=== PATIENT | male | born 1935 | race Caucasian/White ===

== ENCOUNTER 2018-05-26 07:31 | Inpatient (IN) | payer MEDICARE ==
[~2018-05-26] VITALS: Ht 177.8 cm; Wt 70.4 kg
[2018-05-26 08:09] LABS: BASO % 0.6 % (0.0-1.0); EOS # 0.1 10^3/uL (0.0-0.50); EOS % 1.2 % (0.0-3.0); HEMATOCRIT 27.3 % (42.0-52.0); HEMOGLOBIN 8.4 g/dl (13.5-17.5); LYMPH # 0.8 10^3/uL (1.5-4.5); LYMPH % 11.5 % (24.0-44.0); MEAN CORPUSCULAR HEMOGLOBIN 25.8 pg (27.0-33.0); MEAN CORPUSCULAR HGB CONC 30.8 g/dl (32.0-36.5); MEAN CORPUSCULAR VOLUME 83.7 fl (80.0-96.0); MONO # 0.7 10^3/uL (0.0-0.8); MONO % 9.3 % (0.0-5.0); NEUTROPHILS # 5.6 10^3/uL (1.8-7.7); PLATELET COUNT, AUTOMATED 305 10^3/uL (150-450); RED BLOOD COUNT 3.26 10^6/uL (4.30-6.10); WHITE BLOOD COUNT 7.2 10^3/uL (4.0-10.0)
[2018-05-26 08:21] LABS: INR 0.97
[2018-05-26 08:38] LABS: BLOOD UREA NITROGEN 22 MG/DL (7-18); CALCIUM LEVEL 8.5 MG/DL (8.8-10.2); CARBON DIOXIDE LEVEL 24 MEQ/L (21-32); CHLORIDE LEVEL 110 MEQ/L (98-107); CPK CREATINE PHOSPHOKINASE 43 U/L (39-308); CREATININE FOR GFR 1.02 MG/DL (0.70-1.30); GLOMERULAR FILTRATION RATE > 60.0 (>35); GLUCOSE, FASTING 123 MG/DL (70-100); MB/CK RELATIVE INDEX 2.33 (< OR =4); SODIUM LEVEL 141 MEQ/L (136-145); TROPONIN I < 0.02 NG/ML (< 0.10)
[2018-05-26 09:12] LABS: ALBUMIN 3.4 GM/DL (3.2-5.2); ALT/SGPT 15 U/L (12-78); BILIRUBIN,DIRECT < 0.1 MG/DL (0.0-0.2); BILIRUBIN,TOTAL 0.4 MG/DL (0.2-1.0); FERRITIN 9 NG/ML (26-388); IRON (FE) 14 UG/DL (65-175); PERCENT SATURATION 3.5 % (19.7-50.0); TOTAL IRON BINDING CAPACITY 401 UG/DL (250-450); TOTAL PROTEIN 6.3 GM/DL (6.4-8.2)
[2018-05-26] MEDS ORDERED: ISOVUE-370 76% 100ML VIAL (Q9967) As Ordered ONE (09:56)
--- NOTE | 2018-05-26 10:33 | REP ---
CT of the abdomen pelvis wall with IV contrast, without bowel contrast: Comparison is a seven 12/01/2011. There is a pelvic mass to the right of midline measuring 10 cm craniocaudad by 8.4 cm AP by 5.8 cm transversely. The Doppler I suspect this mass is incasing of the ileal loop of small bowel. The small bowel distal to this mass including the terminal ileum are unremarkable. There is no bowel distension or obstruction. There is no ascites. There is no mesenteric or retroperitoneal adenopathy. The visualized lung hillman are unremarkable except for small areas of calcific pleural plaque and calcified granulomas in the right lower lobe. The hepatic parenchyma is homogeneous. The gallbladder is unremarkable. The pancreas and spleen are unremarkable. The adrenals are unremarkable. The right kidney is unremarkable. There is a large cortical calcification at the mid pole of the left kidney, unchanged, likely sequela of prior pyelonephritis or renal infarct. Abdominal aorta is unremarkable. Pelvis: There is a large mass as described. The bladder is unremarkable. There is no adenopathy or ascites. There are lucencies in many lumbar vertebral bodies, nonspecific, osteoporosis versus lytic lesions. There is degenerative disc disease at L4-5. Impression: There is a large pelvic mass which I suspect is in the wall of an ileal loop of small bowel. There is no bowel obstruction or distension. The terminal ileum is unremarkable. There is no adenopathy or ascites. Calcific pleural plaque and calcified granulomas in the lower lobe of the right lung. Lucencies in the lumbar vertebra, nonspecific, osteoporosis versus lytic lesions. L4-5 degenerative disc disease. Electronically Signed by Denny Tariq MD 05/26/2018 10:24 A
--- NOTE | 2018-05-26 10:36 | REP ---
LATERAL RIB SERIES: Five views including PA chest. HISTORY: Left-sided pain 6 weeks after a fall. Comparison radiographs are from September 09, 2005. FINDINGS: There is calcific pleural plaquing noted bilaterally. There is a 2 cm grouping of calcifications in the left upper quadrant of the abdomen unchanged from 2006. There is no evidence of pneumothorax or hydrothorax. No infiltrate is seen. Mediastinum is not widened. The aorta is calcific. Multiple views of the rib cage show periosteal reaction and around the left lateral 9th rib consistent with a healing 9th rib fracture. There is irregularity of the adjacent 11th rib posterolaterally. There is a healing fracture of the lateral 8th rib as well. There are old appearing fractures of the posterior right 9th, 10th, and 11th ribs. No acute rib fracture is seen on the right. There are degenerative changes in the thoracolumbar spine. Exam is otherwise unremarkable. IMPRESSION: Healing fractures of the left 8th and 9th, possibly left 11th rib. Old rib fractures on the right involving rib numbers 9, 10, and 11. No complication is seen. Electronically Signed by Bernardo Smith MD 05/26/2018 10:47 A
[2018-05-26] MEDS ORDERED: ASPI81TA85 PO (11:11)
[2018-05-26] MEDS ORDERED: ACETAMINOPHEN TAB 650MG DOSE (2X325MG) PO PRN (11:45)
[2018-05-26] MEDS: PANTOPRAZOLE 40MG INJ (PROTONIX) (C9113) IV SCH ×2 (13:17→20:17)
[2018-05-26] MEDS: NS 1,000 ML IV SCH ×2 (13:17→23:29)
[2018-05-26 15:30] VITALS: BP 141/74
--- NOTE | 2018-05-26 15:42 | HPEPDOC ---
[facility] Medical History & Physical Date of Admission May 26, 2018 History and Physical CHIEF COMPLAINT: rib pain (fall 6 weeks ago) HISTORY OF PRESENT ILLNESS: Austin Torres is an 82 YO M with no known past medical history (has not seen a physician in >20 years) who presents with left-sided rib pain after a fall at his home about 6 weeks ago. He states he was not dizzy/lightheaded, but he slipped on some ice going up the stairs leading to his front door. He was not evaluated by any physicians during this time frame and only reports to the ED today at the insistence of his sister. He states that he has gotten progressively short of breath over time, and is unable to walk more than about 2 blocks before having to stop to catch his breath. This has been progressively worsening over the past few months. He has not had any changes to his health recently. He denies any weight loss, night sweats, or unexplained fevers. He also denies any dysuria or bloody bowel movements. 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 Does not work. Never smoker. Occasional etOH. FAMILY HISTORY: History of lymphoma, breast cancer and stomach cancer in 1st degree relatives ALLERGIES: Please see below. REVIEW OF SYSTEMS: Negative, other than what is stated in HPI HOME MEDICATIONS: Please see below. PHYSICAL EXAMINATION: VITAL SIGNS: see below GENERAL APPEARANCE: Laying in bed, no acute distress, calm, cooperative HEENT: Moist mucous membranes. Extraocular movements intact, no thyromegaly CARDIOVASCULAR: Regular rate and rhythm without any murmurs, rubs or gallops LUNGS: Clear to auscultation bilaterally without any adventitious breath sounds ABDOMEN: Soft, tender to deep palpation in the left flank over his ribs, no masses or organomegaly MUSCULOSKELETAL: Moves all extremities well EXTREMITIES: No clubbing, cyanosis or edema NEUROLOGICAL: Cranial nerves II-12 intact without any focal deficits appreciated PSYCHIATRIC: Normal mood, somewhat flat affect LABORATORY DATA: See below. IMAGING: RIB XR: Healing fractures of the left 8th and 9th, possibly left 11th rib. Old rib fractures on the right involving rib numbers 9, 10, and 11. No complication is seen CT Abd/PEL: There is a large pelvic mass which I suspect is in the wall of an ileal loop of small bowel. There is no bowel obstruction or distension. The terminal ileum is unremarkable. There is no adenopathy or ascites. Calcific pleural plaque and calcified granulomas in the lower lobe of the right lung. Lucencies in the lumbar vertebra, nonspecific, osteoporosis versus lytic lesions. L4-5 degenerative disc disease. MICROBIOLOGY: Please see below. ASSESSMENT: This is an 82-year-old male with unknown past medical history who presents after a fall and broken ribs found to have possible GI bleed, anemia, and large pelvic mass in the wall of an ileal loop of small bowel. He will be admitted to the PCU for close observation. PLAN: 1. Iron deficiency Anemia secondary to possible GI bleed: Patient states he is unsure whether he has had darkened stools or blood per rectum. His stool occult was found to be positive in the ED. The patient has never had a colonoscopy. -Hemoglobin found to be 8.4, hematocrit 27.3. Baseline Hgb from labs previously done is around 13 -s/p 1U pRBCs in ED. Will recheck H/H in 6 hours -Iron very low at 14, ferritin found to be 9 -IV protonix 40mg BID 2. Abdominal mass: Patient was found to have large abdominal mass in wall of ileum. He has a very rich family history of cancers. The results of his CT scan were discussed with him and his sister. -General surgery consulted -Oncology consulted 3. Broken ribs: improving -Pain management with oxycodone DISPO: Pending surgery/oncology consult CODE STATUS: DNR/DNI Vital Signs Vital Signs Date Time Temp Pulse Resp B/P (MAP) Pulse Ox O2 Delivery O2 Flow Rate FiO2 05/26/18 12:40 98.3 74 17 111/68 (82) 97 05/26/18 07:48 Room Air Laboratory Data Labs 24H Laboratory Tests 2 05/26/18 07:58: Prothrombin Time 13.0, Prothromb Time International Ratio 0.97, Anion Gap 7L, Glomerular Filtration Rate > 60.0, Calcium Level 8.5L, Iron Level 14L, Total Iron Binding Capacity 401, Transferrin % Saturation 3.5L, Ferritin 9L, Aspartate Amino Transf (AST/SGOT) 14, Alanine Aminotransferase (ALT/SGPT) 15, Alkaline Phosphatase 59, Total Bilirubin 0.4, Direct Bilirubin < 0.1, Total Creatine Kinase 43, Creatine Kinase MB 1.0, Creatine Kinase MB Relative Index 2.33, Troponin I < 0.02, Total Protein 6.3L, Albumin 3.4, Albumin/Globulin Ratio 1.17 05/26/18 07:59: Immature Granulocyte % (Auto) 0.4, White Blood Count 7.2, Red Blood Count 3.26L, Hemoglobin 8.4L, Hematocrit 27.3L, Mean Corpuscular Volume 83.7, Mean Corpuscular Hemoglobin 25.8L, Mean Corpuscular Hemoglobin Concent 30.8L, Red Cell Distribution Width 13.2, Platelet Count 305, Neutrophils (%) (Auto) 77.0H, Lymphocytes (%) (Auto) 11.5L, Monocytes (%) (Auto) 9.3H, Eosinophils (%) (Auto) 1.2, Basophils (%) (Auto) 0.6, Neutrophils # (Auto) 5.6, Lymphocytes # (Auto) 0.8L, Monocytes # (Auto) 0.7, Eosinophils # (Auto) 0.1, Basophils # (Auto) 0.0, Nucleated Red Blood Cells % (auto) 0.0 CBC/BMP Laboratory Tests 05/26/18 07:58 05/26/18 07:59 Red Blood Count 3.26 L, Mean Corpuscular Volume 83.7, Mean Corpuscular Hemoglobin 25.8 L, Mean Corpuscular Hemoglobin Concent 30.8 L, Red Cell Distribution Width 13.2, Neutrophils (%) (Auto) 77.0 H, Lymphocytes (%) (Auto) 11.5 L, Monocytes (%) (Auto) 9.3 H, Eosinophils (%) (Auto) 1.2, Basophils (%) (Auto) 0.6, Neutrophils # (Auto) 5.6, Lymphocytes # (Auto) 0.8 L, Monocytes # (Auto) 0.7, Eosinophils # (Auto) 0.1, Basophils # (Auto) 0.0 Home Medications Scheduled Aspirin (Aspir 81) 81 Mg Tablet.dr, 81 MG PO DAILY Allergies Coded Allergies: No Known Drug Allergies (Verified Allergy, Unknown, 05/26/18) GME ATTESTATION GME ATTESTATION My faculty preceptor for this patient encounter was physically present during the encounter and was fully available. All aspects of the patient interview, examination, medical decision making process, and medical care plan development were reviewed and approved by the faculty preceptor. The faculty preceptor is aware and concurs with the plan as stated in the body of this note and will attest to such by his/her cosignature. ATTENDING NOTE ATTENDING ATTESTATION: I discussed and reviewed the findings and plan with resident. I have personally assessed patient at bedside and agreed with resident's assessment and plans. VIVIANE BOONE MD May 26, 2018 15:42 RADHA SAMS MD May 26, 2018 17:38
[2018-05-26] MEDS ORDERED: PERCOCET 5MG/325MG TAB PO PRN (15:45)
--- NOTE | 2018-05-26 18:34 | CR.PDOC ---
General Date of Consultation: May 26, 2018 Consultation REASON FOR CONSULTATION/CHIEF COMPLAINT: . Abdominal mass HISTORY OF PRESENT ILLNESS:82 year old male relates falling of steps and " misjudged " his disstance and was brought to the hopsital by his sister (80 year old ) Whdn seen in the ER he underwnet imaging studies revealing lytic lesions Evaluation of the Left sided rib Fx was done adn a CT of mike abdomne to r/o splenic bleed an abdominal mass with encasement of a small bowel portion was identified He denies weight loss, good apetite no blood in stool . , no abdominal pain . ALLERGIES: Please see below. HOME MEDICATIONS: none PAST MEDICAL HISTORY: 1. . 2. . PAST SURGICAL HISTORY: 1. no prior surgery 2. FAMILY HISTORY: Father: [ age 64 sudden ] Mother: age 70's Siblings: [13 siblings 8 still alive 1 sister late 30's may have had cancer unsure One ded of old age 1 brother of cancer lived in [place] unknown type Children: [5] Hereditary Diseases: [no ] Unexpected deaths due to medical reasons: [Father ] SOCIAL HISTORY: for 6 years Son bought the [employer] and nw works it he helps occasionally Non smoker no ETOH REVIEW OF SYSTEMS: CONSTITUTIONAL: [no sweats no weight loss ]. HEENT: no changes in vision . CARDIOVASCULAR: [ no chest pain palpitations no edema ]. RESPIRATORY: [no astham no SOB n o TB]. GENITOURINARY: [no dysuria no hematuria ]. MUSCULOSKELETAL: [no aches ]. GASTROINTESTINAL: [no bleeding noted no change in color or consistency of the bowels ]. SKIN: . NEUROLOGICAL: no numbness noted . PSYCHIATRIC: . ENDOCRINE: . HEMATOLOGIC/LYMPHATIC: . ALLERGIC/IMMUNOLOGIC: . PHYSICAL EXAMINATION: VITAL SIGNS: Please see below. GENERAL APPEARANCE: [ appearnace younger than stated age ]. HEENT: NC aT perrl EOMI sclera white RESPIRATORY: clear to A&P. CARDIOVASCULAR: s1 s2 appreciate no murmurs . ABDOMEN: [ no distendtion some fullness in the mid epigastric area no guarding or rebound noted ]. EXTREMITIES: [no cce ]. NEUROLOGICAL: intact . PSYCHIATRIC: . Laboratory Tests 05/26/18 07:58 05/26/18 07:59 Red Blood Count 3.26 L, Mean Corpuscular Volume 83.7, Mean Corpuscular Hemoglobin 25.8 L, Mean Corpuscular Hemoglobin Concent 30.8 L, Red Cell Distribution Width 13.2, Neutrophils (%) (Auto) 77.0 H, Lymphocytes (%) (Auto) 11.5 L, Monocytes (%) (Auto) 9.3 H, Eosinophils (%) (Auto) 1.2, Basophils (%) (Auto) 0.6, Neutrophils # (Auto) 5.6, Lymphocytes # (Auto) 0.8 L, Monocytes # (Auto) 0.7, Eosinophils # (Auto) 0.1, Basophils # (Auto) 0.0 LABORATORY DATA: Please see below. Vital Signs Date Time Temp Pulse Resp B/P (MAP) Pulse Ox O2 Delivery O2 Flow Rate FiO2 05/26/18 15:30 97.3 75 20 141/74 (96) 100 05/26/18 15:20 84 19 130/65 (86) 91 Room Air 05/26/18 12:40 98.3 74 17 111/68 (82) 97 05/26/18 11:58 98.2 72 18 118/62 (80) 93 05/26/18 11:55 97.0 75 18 138/71 (93) 91 05/26/18 09:41 78 115/66 (82) 85 110/69 (83) 100 105/64 (78) 05/26/18 08:36 18 111/69 (83) 98 05/26/18 08:31 79 05/26/18 08:16 83 05/26/18 08:01 80 05/26/18 07:55 05/26/18 07:48 100 Room Air 05/26/18 07:46 85 88 05/26/18 07:31 96.0 91 16 120/55 (76) Room Air Laboratory Tests 05/26/18 07:58: Prothrombin Time 13.0, Prothromb Time International Ratio 0.97, Sodium Level 141, Potassium Level 4.0, Chloride Level 110H, Carbon Dioxide Level 24, Anion Gap 7L, Blood Urea Nitrogen 22H, Creatinine 1.02, Glomerular Filtration Rate > 60.0, Fasting Glucose 123H, Calcium Level 8.5L, Iron Level 14L, Total Iron Binding Capacity 401, Transferrin % Saturation 3.5L, Ferritin 9L, Aspartate Amino Transf (AST/SGOT) 14, Alanine Aminotransferase (ALT/SGPT) 15, Alkaline Phosphatase 59, Total Bilirubin 0.4, Direct Bilirubin < 0.1, Total Creatine Kinase 43, Creatine Kinase MB 1.0, Creatine Kinase MB Relative Index 2.33, Troponin I < 0.02, Total Protein 6.3L, Albumin 3.4, Albumin/Globulin Ratio 1.17 05/26/18 07:59: White Blood Count 7.2, Red Blood Count 3.26L, Hemoglobin 8.4L, Hematocrit 27.3L, Mean Corpuscular Volume 83.7, Mean Corpuscular Hemoglobin 25.8L, Mean Corpuscular Hemoglobin Concent 30.8L, Red Cell Distribution Width 13.2, Platelet Count 305, Neutrophils (%) (Auto) 77.0H, Lymphocytes (%) (Auto) 11.5L, Monocytes (%) (Auto) 9.3H, Eosinophils (%) (Auto) 1.2, Basophils (%) (Auto) 0.6, Neutrophils # (Auto) 5.6, Lymphocytes # (Auto) 0.8L, Monocytes # (Auto) 0.7, Eosinophils # (Auto) 0.1, Basophils # (Auto) 0.0, Immature Granulocyte % (Auto) 0.4, Nucleated Red Blood Cells % (auto) 0.0 Current Medications Medications (Trade) Dose Ordered Sig/Rosy Route PRN Reason Start Time Stop Time Status Last Admin Dose Admin Pantoprazole Sodium (Protonix) 40 mg BID IV 05/26/18 09:00 05/26/18 13:17 40 MG Sodium Chloride 1,000 ml @ 100 mls/hr Q10H IV 05/26/18 12:00 05/26/18 13:17 100 MLS/HR ASSESSMENT/PLAN: 1. [Small bowel lesion Surgical consult pending tissue biopsy pending Thanks Pratibha Anglin ]. 2. . Vital Signs/I&O Vital Signs Date Time Temp Pulse Resp B/P (MAP) Pulse Ox O2 Delivery O2 Flow Rate FiO2 05/26/18 15:30 97.3 75 20 141/74 (96) 100 05/26/18 15:20 Room Air Laboratory Data Labs 24H Laboratory Tests 2 05/26/18 07:58: Prothrombin Time 13.0, Prothromb Time International Ratio 0.97, Anion Gap 7L, Glomerular Filtration Rate > 60.0, Calcium Level 8.5L, Iron Level 14L, Total Iron Binding Capacity 401, Transferrin % Saturation 3.5L, Ferritin 9L, Aspartate Amino Transf (AST/SGOT) 14, Alanine Aminotransferase (ALT/SGPT) 15, Alkaline Phosphatase 59, Total Bilirubin 0.4, Direct Bilirubin < 0.1, Total Creatine Kinase 43, Creatine Kinase MB 1.0, Creatine Kinase MB Relative Index 2.33, Troponin I < 0.02, Total Protein 6.3L, Albumin 3.4, Albumin/Globulin Ratio 1.17 05/26/18 07:59: Immature Granulocyte % (Auto) 0.4, White Blood Count 7.2, Red Blood Count 3.26L, Hemoglobin 8.4L, Hematocrit 27.3L, Mean Corpuscular Volume 83.7, Mean Corpuscular Hemoglobin 25.8L, Mean Corpuscular Hemoglobin Concent 30.8L, Red Cell Distribution Width 13.2, Platelet Count 305, Neutrophils (%) (Auto) 77.0H, Lymphocytes (%) (Auto) 11.5L, Monocytes (%) (Auto) 9.3H, Eosinophils (%) (Auto) 1.2, Basophils (%) (Auto) 0.6, Neutrophils # (Auto) 5.6, Lymphocytes # (Auto) 0.8L, Monocytes # (Auto) 0.7, Eosinophils # (Auto) 0.1, Basophils # (Auto) 0.0, Nucleated Red Blood Cells % (auto) 0.0 CBC/BMP Laboratory Tests 05/26/18 07:58 05/26/18 07:59 Red Blood Count 3.26 L, Mean Corpuscular Volume 83.7, Mean Corpuscular Hem oglobin 25.8 L, Mean Corpuscular Hemoglobin Concent 30.8 L, Red Cell Distribution Width 13.2, Neutrophils (%) (Auto) 77.0 H, Lymphocytes (%) (Auto) 11.5 L, Monocytes (%) (Auto) 9.3 H, Eosinophils (%) (Auto) 1.2, Basophils (%) (Auto) 0.6, Neutrophils # (Auto) 5.6, Lymphocytes # (Auto) 0.8 L, Monocytes # (Auto) 0.7, Eosinophils # (Auto) 0.1, Basophils # (Auto) 0.0 Allergies Coded Allergies: No Known Drug Allergies (Verified Allergy, Unknown, 05/26/18) Home Medications Scheduled Aspirin (Aspir 81) 81 Mg Tablet., 81 MG PO DAILY, (Reported) Pratibha Anglin MD May 26, 2018 18:34
[2018-05-26 18:53] LABS: HEMATOCRIT 25.2 % (42.0-52.0); MEAN CORPUSCULAR HEMOGLOBIN 26.1 pg (27.0-33.0); MEAN CORPUSCULAR HGB CONC 31.7 g/dl (32.0-36.5); MEAN CORPUSCULAR VOLUME 82.1 fl (80.0-96.0); PLATELET COUNT, AUTOMATED 242 10^3/uL (150-450); RED BLOOD COUNT 3.07 10^6/uL (4.30-6.10); WHITE BLOOD COUNT 6.1 10^3/uL (4.0-10.0)
[2018-05-26 19:56] VITALS: BP 116/69
--- NOTE | 2018-05-26 20:55 | CR ---
DATE OF CONSULTATION: 05/26/2018 REASON FOR CONSULTATION: Anemia with small bowel mass. 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 He had apparently suffered a fall 6-7 weeks ago landing on his left side with persistent pain thereafter. He also has found that he is unable to walk as far as he has previously been able with some shortness of breath on exertion. For these reasons, he came to the emergency department. He was evaluated and found to have several healing rib fractures on the left but also to have some significant anemia. His stool guaiac testing apparently showed heme-positive stool, and a CT scan of the abdomen and pelvis was performed which showed a mass which appeared to be involving and encasing a short segment of small bowel in the distal small bowel. The patient has not seen a doctor in many years and has been on no medications with no history of surgery. He is now admitted for management of his anemia and further evaluation of his abdominal mass. The hospitalist has admitted the patient and Dr. Anglin of oncology and myself have been consulted. MEDICATIONS: Patient is on no prescription medications at home. He apparently has been taking a daily baby aspirin, but also reports that me that he has been taking a daily laxative due to longstanding constipation. ALLERGIES: The patient has no reported drug allergies. SURGICAL HISTORY: Entirely negative. MEDICAL HISTORY: The patient denies any active medical problems. He has no history of cardiac issues. He denies any breathing problems until such time as he developed his recent exertional dyspnea. He denies any changes in his bowel habits, though he has some chronic constipation. He has not noticed any rectal bleeding. He denies any dysuria or hematuria. He has not had anything significant bone or joint issues. He denies any history of blood clots. He has had no history of seizure or stroke. SOCIAL HISTORY: He has a never smoker. He drinks alcohol occasionally. He lives alone but has a sister who lives in [place]. FAMILY HISTORY: Significant for a history of lymphoma and with at least one member of the family with breast cancer and stomach cancer. PHYSICAL EXAMINATION: The patient is a fairly thin, generally fairly fit appearing elderly man lying quietly on the hospital bed. He rouses readily to voice. He is alert and responds appropriately. Mucous membranes are moist. The sclerae are anicteric. Neck is supple without apparent mass. Heart exam shows a regular rate and rhythm. The lungs are clear to auscultation. Abdomen is flat, though somewhat full currently following a meal. He has active bowel sounds in all four quadrants. The abdomen is soft. There is no evident hernia and no scarring seen. There is no palpable mass. Extremities: Show no peripheral edema. He has palpable radial and dorsalis pedis pulses bilaterally. Laboratory studies show that on presentation at about 8 o'clock in the morning on May 26, he had a white count of 7, hemoglobin of 8, hematocrit 27 and a platelet count of 305,000. Differential count showed 77% neutrophils, 12% lymphocytes and 9% monocytes. Chemistry profile showed a sodium of 141, potassium 4.0, chloride 110, CO2 of 24, BUN of 22, creatinine 1, and a glucose of 123. His iron was 14 with a TIBC of 401 and a transferrin percent saturation of 3.5. His liver function tests were normal. Total protein is 6.3 with an albumin of 3.4. PT and INR were normal. IMAGING: Done in the emergency department included a chest x-ray that showed healing fractures of the left 8th and 9th and possibly the 11th rib. Old rib fractures were noted on the right involving the 9th, 10th, and 11th ribs. A CT scan of the abdomen and pelvis was done which revealed a mass in the right side of the pelvis measuring approximately 10 cm maximally and appearing to encase a loop of the distal ileum. There was no evidence of obstruction or distension of the bowel and there was no free fluid seen. The radiologist reported some lucencies in the lumbar vertical bodies, which he described as nonspecific and consistent with osteoporosis versus lytic lesions. IMPRESSION: Patient is a pleasant, previously healthy 82-year-old man who presented with several recent rib fractures and also now with anemia and exertional dyspnea with a mass identified in the distal small bowel. RECOMMENDATIONS: At this point, it seems most likely that the intestinal mass is the cause for his anemia, though this is certainly not certain. He could have other gastrointestinal tract lesions leading to the blood loss and anemia, but certainly the mass is obvious and could well be the source for his bleeding. Interestingly, this appears to encircle or encase a loop of small bowel, but there is not any sign of obstruction. There are a number of different types of tumor that this could represent, both malignant and possibly even benign. I would recommend at this point that the patient receive transfusions to an acceptable level for surgery. He has been healthy all of life and denies any cardiac or significant respiratory issues. I think it is likely that the most direct approach to an answer to both the source of his bleeding and the elimination of his tumor would be to resect this mass. I will continue to follow him and when his medical issues are all felt to be stable, then I will discuss with him surgery to resect this intestinal mass. ADINA
[2018-05-26 23:54] VITALS: BP 111/63
[2018-05-27 03:54] VITALS: BP 118/59
[2018-05-27 05:24] LABS: HEMATOCRIT 23.8 % (42.0-52.0); HEMOGLOBIN 7.4 g/dl (13.5-17.5); MEAN CORPUSCULAR HEMOGLOBIN 25.8 pg (27.0-33.0); MEAN CORPUSCULAR HGB CONC 31.1 g/dl (32.0-36.5); MEAN CORPUSCULAR VOLUME 82.9 fl (80.0-96.0); PLATELET COUNT, AUTOMATED 227 10^3/uL (150-450); RED BLOOD COUNT 2.87 10^6/uL (4.30-6.10); WHITE BLOOD COUNT 5.1 10^3/uL (4.0-10.0)
[2018-05-27 05:40] LABS: BLOOD UREA NITROGEN 20 MG/DL (7-18); CALCIUM LEVEL 7.7 MG/DL (8.8-10.2); CARBON DIOXIDE LEVEL 25 MEQ/L (21-32); CHLORIDE LEVEL 113 MEQ/L (98-107); GLOMERULAR FILTRATION RATE > 60.0 (>35); GLUCOSE, FASTING 82 MG/DL (70-100); POTASSIUM SERUM 3.9 MEQ/L (3.5-5.1); SODIUM LEVEL 142 MEQ/L (136-145)
[2018-05-27] MEDS: D5W/0.9% SODIUM CHLORIDE 1,000 ML IV SCH ×2 (06:50→21:57)
[2018-05-27 08:04] VITALS: BP 102/56
[2018-05-27] MEDS: PANTOPRAZOLE 40MG INJ (PROTONIX) (C9113) IV SCH ×2 (10:39→21:57)
[2018-05-27 12:09] VITALS: BP 119/74
[2018-05-27 12:21] LABS: HEMATOCRIT 27.1 % (42.0-52.0); HEMOGLOBIN 8.5 g/dl (13.5-17.5)
--- NOTE | 2018-05-27 12:36 | IPNPDOC ---
Date Seen The patient was seen on 05/27/18. Progress Note SUBJECTIVE: Patient is a 82 yo Male with no known PMH presented with complaints of L. sided rib pain found to have a large abdominal mass and anemia with + fecal occult stool. Interval history: Patient reported feeling fine and denies any noticable abdominal pain/discomfort, N/V. He states that the rib pain is there but otherwise has no complaints. OBJECTIVE PHYSICAL EXAMINATION: VITAL SIGNS: Please see below. General: No acute distress, Alert Eyes: Normal sclera, EOMI, RADHA HENT: Atraumatic, neck supple, moist mucous membranes Cardiovascular: Normal rate, normal rhythm. No murmurs appreciated. Pulmonary: Clear to auscultation b/l, no wheezing GI: Soft, nontender, nondistended Skin: Warm and dry Neuro: CN grossly intact. No focal deficits. Strengths equal b/l. Psych: oriented x 3 LABORATORY DATA, IMAGING STUDIES, MICROBIOLOGY: Please see below. DVT prophylaxis ordered?: YES ASSESSMENT AND PLAN: 1. Abdominal mass - large mass in wall of ileum in setting of strong family history of malignancy. - No previous known colonoscopy, patient normally does not follow doctors. - General surgery and oncology following. - Stabelizing medically and will need to discuss plan going forward as far as resection/biopsy when appropriate. 2. Iron deficiency anemia - Patient is receiving pRBC. No significant anemic symptoms reported. - Likely 2/2 GI bleed possibly from mass. FOBT+. - Monitor H/H. - Low iron and Ferritin. - c/w IV Protonix. 3.Broken ribs - Pain improving. - c/w Oxycodone as needed for pain. Dispo: likely home. Code status: DNR/DNI. DISPOSITION: Home when stable. VS, I&O, 24H, Fishbone Vital Signs/I&O Vital Signs Date Time Temp Pulse Resp B/P (MAP) Pulse Ox O2 Delivery O2 Flow Rate FiO2 05/27/18 12:09 97.8 62 18 119/74 (89) 100 05/26/18 15:20 Room Air I&O- Last 24 Hours up to 6 AM 05/27/18 06:00 Intake Total 1278 ml Output Total 750 ml Balance 528 ml Laboratory Data 24H LABS Laboratory Tests 2 05/26/18 18:34: Nucleated Red Blood Cells % (auto) 0.0, Lactate Dehydrogenase 167, Carcinoembryonic Antigen 2.4 05/26/18 19:53: Bedside Glucose (Misc Panel) 85 05/27/18 04:55: Nucleated Red Blood Cells % (auto) 0.0, Anion Gap 4L, Glomerular Filtration Rate > 60.0, Blood Urea Nitrogen 20H, Creatinine 0.80, Sodium Level 142, Potassium Level 3.9, Chloride Level 113H, Carbon Dioxide Level 25, Calcium Level 7.7L CBC/BMP Laboratory Tests 05/26/18 18:34 Red Blood Count 3.07 L, Mean Corpuscular Volume 82.1, Mean Corpuscular Hemoglobin 26.1 L, Mean Corpuscular Hemoglobin Concent 31.7 L, Red Cell Distrib ution Width 13.7 05/27/18 04:55 Red Blood Count 2.87 L, Mean Corpuscular Volume 82.9, Mean Corpuscular Hemoglobin 25.8 L, Mean Corpuscular Hemoglobin Concent 31.1 L, Red Cell Di stribution Width 13.6, Calcium Level 7.7 L 05/27/18 11:52 RADHA SAMS MD May 27, 2018 12:36
[2018-05-27 16:00] VITALS: BP 122/60
[2018-05-27 19:00] VITALS: BP 144/66
--- NOTE | 2018-05-27 21:13 | ECGEPIP ---
Stationary ECG Study [facility] - ED Test Date: 2018-05-26 Pat Name: BRIDGET WHITE Department: Room: - Gender: M Watermelon Inspector: : [id number] Requested By: Jim Morgan Order Number: [id number] Reading MD: Deepali Sanchez Measurements Intervals [place] Rate: 81 P: 95 VA: 174 QRS: -13 QRSD: 95 T: 15 QT: 389 QTc: 453 Interpretive Statements SINUS RHYTHM WITH FREQUENT VENTRICULAR PREMATURE COMPLEXES INCOMPLETE RIGHT BUNDLE BRANCH BLOCK ABNORMAL RHYTHM ECG NO PRIOR FOR COMPARISON Electronically Signed On 05-27-2018 21:13:13 EDT by Deepali Sanchez
[2018-05-27 22:00] VITALS: BP 149/68
[2018-05-28 02:00] VITALS: BP 112/58
[2018-05-28 06:00] VITALS: BP 111/55
[2018-05-28 06:13] LABS: HEMATOCRIT 27.1 % (42.0-52.0); HEMOGLOBIN 8.4 g/dl (13.5-17.5); MEAN CORPUSCULAR VOLUME 83.9 fl (80.0-96.0); PLATELET COUNT, AUTOMATED 243 10^3/uL (150-450); RED BLOOD COUNT 3.23 10^6/uL (4.30-6.10); WHITE BLOOD COUNT 5.2 10^3/uL (4.0-10.0)
[2018-05-28 06:40] LABS: BLOOD UREA NITROGEN 17 MG/DL (7-18); CALCIUM LEVEL 7.5 MG/DL (8.8-10.2); CARBON DIOXIDE LEVEL 24 MEQ/L (21-32); CHLORIDE LEVEL 114 MEQ/L (98-107); CREATININE FOR GFR 0.83 MG/DL (0.70-1.30); GLOMERULAR FILTRATION RATE > 60.0 (>35); GLUCOSE, FASTING 98 MG/DL (70-100); POTASSIUM SERUM 3.6 MEQ/L (3.5-5.1); SODIUM LEVEL 144 MEQ/L (136-145)
[2018-05-28] MEDS: PANTOPRAZOLE 40MG INJ (PROTONIX) (C9113) IV SCH ×2 (08:57→22:11)
[2018-05-28 10:00] VITALS: BP 117/59
[2018-05-28] MEDS: D5W/0.9% SODIUM CHLORIDE 1,000 ML IV SCH (11:06)
[2018-05-28 14:00] VITALS: BP 122/63
--- NOTE | 2018-05-28 14:48 | IPNPDOC ---
Date Seen The patient was seen on 05/28/18. Progress Note SUBJECTIVE: Patient is a 82 yo Male with no known PMH presented with complaints of L. sided rib pain found to have a large abdominal mass and anemia with + fecal occult stool. Interval history: Patient reported feeling fine, has no symptoms. Denies any N/V. Hb 8.4 this AM. OBJECTIVE PHYSICAL EXAMINATION: VITAL SIGNS: Please see below. General: No acute distress, Alert Eyes: Normal sclera, EOMI, RADHA HENT: Atraumatic, neck supple, moist mucous membranes Cardiovascular: Normal rate, normal rhythm. No murmurs appreciated. Pulmonary: Clear to auscultation b/l, no wheezing GI: Soft, nontender, nondistended Skin: Warm and dry Neuro: CN grossly intact. No focal deficits. Strengths equal b/l. Psych: oriented x 3 LABORATORY DATA, IMAGING STUDIES, MICROBIOLOGY: Please see below. DVT prophylaxis ordered?: YES ASSESSMENT AND PLAN: 1. Abdominal mass - large mass in wall of ileum in setting of strong family history of malignancy. - No previous known colonoscopy, patient normally does not follow doctors. - General surgery and oncology following. - Tentatively plan for OR tomorrow. - Transfuse if Hb drops prior to surgery. - Patient had no known coronary disease or pulmonary disease. - Class Risk I preoperative risk. 0 points. 2. Iron deficiency anemia - s/p 2 pRBC. No significant anemic symptoms reported. - Likely 2/2 GI bleed possibly from mass. FOBT+. - Monitor H/H. - Low iron and Ferritin. - c/w IV Protonix. 3.Broken ribs - Pain improving. - c/w Oxycodone as needed for pain. Dispo: likely home. Code status: DNR/DNI. DISPOSITION: Home when stable. VS, I&O, 24H, Fishbone Vital Signs/I&O Vital Signs Date Time Temp Pulse Resp B/P (MAP) Pulse Ox O2 Delivery O2 Flow Rate FiO2 05/28/18 06:00 97.0 65 18 111/55 (73) 98 05/26/18 15:20 Room Air I&O- Last 24 Hours up to 6 AM 05/28/18 06:00 Intake Total 640 ml Output Total 1000 ml Balance -360 ml Laboratory Data 24H LABS Laboratory Tests 2 05/28/18 05:38: Nucleated Red Blood Cells % (auto) 0.0, Anion Gap 6L, Glomerular Filtration Rate > 60.0, Blood Urea Nitrogen 17, Creatinine 0.83, Sodium Level 144, Potassium Level 3.6, Chloride Level 114H, Carbon Dioxide Level 24, Calcium Level 7.5L CBC/BMP Laboratory Tests 05/28/18 05:38 Red Blood Count 3.23 L, Mean Corpuscular Volume 83.9, Mean Corpuscular Hemoglobin 26.0 L, Mean Corpuscular Hemoglobin Concent 31.0 L, Red Cell Distribution Width 13.8, Calcium Level 7.5 L RADHA SAMS MD May 28, 2018 14:48
[2018-05-28 20:00] VITALS: BP 117/63
[2018-05-28 22:00] VITALS: BP 117/63
[2018-05-29] VITALS (8 sets, daily range): BP systolic 112–156; BP diastolic 63–71
[2018-05-29] MEDS: D5W/0.9% SODIUM CHLORIDE 1,000 ML IV SCH (01:24)
--- NOTE | 2018-05-29 03:00 | IPN ---
DATE: 05/27/2018 HISTORY: The patient was admitted on the with a history of a previous fall with several broken ribs and the finding of marked anemia. A CT scan of the abdomen and pelvis revealed a mass involving a loop of distal small bowel. He has had no symptoms from this. This is presumed to be the site of gastrointestinal tract bleeding. VITAL SIGNS: The patient has been afebrile over the past 24 hours. His pulse has been in the 60s and 70s. Blood pressure is stable and his oxygen saturation is normal on room air. Intake and output shows that on the he had 1100 in with 450 recorded out. PHYSICAL EXAMINATION: The patient is alert and oriented. He received one unit of packed red blood cells on the and is receiving another unit today. He is alert, oriented and comfortable. Heart exam shows a regular rhythm and the abdomen is soft and nontender. Laboratory studies show a white count of five with a hemoglobin of 7, hematocrit of 24 and platelet count of 227,000. Chemistry profile this morning showed a sodium of 142, potassium 3.9, chloride 113, CO2 of 25, BUN of 20, creatinine 0.8 and a glucose of 82. IMPRESSION: The patient's anemia has not improved after 1 unit of blood and will receive a second unit today. He otherwise remains asymptomatic with a known small bowel mass. PLAN: The patient was counseled that I would recommend removing the abnormal segment of his small bowel. I will attempt to find time in the OR schedule for the . He can continue with a diet for now and he probably will not require a bowel preparation for the surgery. I will let him know if I can give him a more definite time for the procedure. ADINA
--- NOTE | 2018-05-29 03:03 | IPN ---
DATE: 05/28/2018 HISTORY: The patient received his second unit of blood yesterday. His hematocrit this morning is 27%. He has not noticed any rectal bleeding. He denies any nausea or vomiting or abdominal pain. VITAL SIGNS: Show that he has remained afebrile with a pulse in the 60s and a normal blood pressure. Intake and output yesterday showed 840 in with 1300 out. His unit of blood yesterday is not recorded in the intake and output. PHYSICAL EXAMINATION: The patient is alert and oriented and comfortable. The abdomen shows active bowel sounds and the abdomen is soft and nontender. Laboratory studies this morning show white count of 5, hemoglobin of 8, hematocrit of 27% and platelet count is 243,000. Chemistry profile is really unchanged from yesterday with a normal BUN and creatinine and a glucose of 98. IMPRESSION: Anemia, presumed secondary to distal small bowel mass. PLAN: Patient is scheduled as an add-on for surgery for a small bowel resection on the . I have recommended that he remain on clear liquids today and then nothing by mouth after midnight. I do not know when his surgery will occur, but it is likely to be late in the afternoon. ADINA
[2018-05-29 06:51] LABS: HEMATOCRIT 31.2 % (42.0-52.0); HEMOGLOBIN 9.7 g/dl (13.5-17.5); MEAN CORPUSCULAR HEMOGLOBIN 26.5 pg (27.0-33.0); MEAN CORPUSCULAR HGB CONC 31.1 g/dl (32.0-36.5); MEAN CORPUSCULAR VOLUME 85.2 fl (80.0-96.0); PLATELET COUNT, AUTOMATED 283 10^3/uL (150-450); RED BLOOD COUNT 3.66 10^6/uL (4.30-6.10); WHITE BLOOD COUNT 6.3 10^3/uL (4.0-10.0)
[2018-05-29 07:16] LABS: BLOOD UREA NITROGEN 11 MG/DL (7-18); CALCIUM LEVEL 8.2 MG/DL (8.8-10.2); CARBON DIOXIDE LEVEL 21 MEQ/L (21-32); CHLORIDE LEVEL 114 MEQ/L (98-107); GLOMERULAR FILTRATION RATE > 60.0 (>35); GLUCOSE, FASTING 127 MG/DL (70-100); POTASSIUM SERUM 3.4 MEQ/L (3.5-5.1); SODIUM LEVEL 145 MEQ/L (136-145)
[2018-05-29] MEDS: PANTOPRAZOLE 40MG INJ (PROTONIX) (C9113) IV SCH (08:57)
[2018-05-29] MEDS ORDERED: POTASSIUM CHLORIDE INJ 20 MEQ in D5W/LR 1,000 ML IV SCH (09:00)
[2018-05-29] MEDS ORDERED: KCL 10MEQ/100ML SWI (KRUN) 10 MEQ in APPROPRIATE DILUENT 1 EA IV ONE (10:15)
[2018-05-29] MEDS ORDERED: BUPIVACAINE HCL 0.25% 30 ML VIAL As Ordered ONE (15:11)
[2018-05-29] MEDS ORDERED: ONDANSETRON 4MG/2ML VIAL (J2405) As Ordered ONE ×2 (15:51→19:28)
[2018-05-29] MEDS ORDERED: GLYCOPYRROLATE INJ 0.2 MG/ML 2 ML VIAL As Ordered ONE (15:51)
[2018-05-29] MEDS ORDERED: dexameTHASONE 4 MG/ML 1ML VIAL (J1100) As Ordered ONE (15:51)
[2018-05-29] MEDS ORDERED: ROCURONIUM BROMIDE 50 MG/5 ML VIAL As Ordered ONE (15:51)
[2018-05-29] MEDS ORDERED: LIDOCAINE 2% INJ 100 MG/5 ML SDV (FOR ANES.) As Ordered ONE (15:51)
[2018-05-29] MEDS ORDERED: fentaNYL 100 MCG/2 ML INJECTION (J3010) As Ordered ONE (15:51)
[2018-05-29] MEDS ORDERED: NEOSTIGMINE 10 MG/10 ML VIAL (J2710) As Ordered ONE (15:51)
[2018-05-29] MEDS ORDERED: PROPOFOL 200 MG/20 ML VIAL As Ordered ONE (15:51)
[2018-05-29] MEDS ORDERED: KETOROLAC 60 MG/2 ML VIAL (J1885) As Ordered ONE (15:51)
[2018-05-29] MEDS ORDERED: MIDAZOLAM INJ 2 MG/2 ML VIAL (J2250) As Ordered ONE (15:52)
[2018-05-29] MEDS ORDERED: cefoTEtan INJ 2GM VIAL (S0074 PER 500MG) As Ordered ONE (16:11)
[2018-05-29] MEDS ORDERED: cefoTEtan DISODIUM 2 GM in D5W MINI-BAG PLUS 50 ML IV ONE (16:15)
--- NOTE | 2018-05-29 16:52 | IPNPDOC ---
Date Seen The patient was seen on 05/29/18. Progress Note SUBJECTIVE: Patient is a 82 yo Male with no known PMH presented with complaints of L. sided rib pain found to have a large abdominal mass and anemia with + fecal occult stool. Interval history: Patient looks comfortable and offered no complaints including any N/V/D this morning. Scheduled for add-on surgery for small bowel resection today. OBJECTIVE PHYSICAL EXAMINATION: VITAL SIGNS: Please see below. General: No acute distress, Alert Eyes: Normal sclera, EOMI, RADHA HENT: Atraumatic, neck supple, moist mucous membranes Cardiovascular: Normal rate, normal rhythm. No murmurs appreciated. Pulmonary: Clear to auscultation b/l, no wheezing GI: Soft, nontender, nondistended Skin: Warm and dry Neuro: CN grossly intact. No focal deficits. Strengths equal b/l. Psych: oriented x 3 LABORATORY DATA, IMAGING STUDIES, MICROBIOLOGY: Please see below. DVT prophylaxis ordered?: YES ASSESSMENT AND PLAN: 1. Abdominal mass - large mass in wall of ileum in setting of strong family history of malignancy. - No previous known colonoscopy, patient normally does not follow doctors. - General surgery and oncology following. - Scheduled as add-on for OR for SB resection today. - Patient had no known coronary disease or pulmonary disease. - Class Risk I preoperative risk. 0 points. 2. Iron deficiency anemia - s/p 2 pRBC. No significant anemic symptoms reported. - Likely 2/2 GI bleed possibly from mass. FOBT+. - Monitor H/H. - Low iron and Ferritin. - c/w IV Protonix. 3.Broken ribs - Pain improving. - c/w Oxycodone as needed for pain. Dispo: likely home. Code status: DNR/DNI. DISPOSITION: Home when stable. VS, I&O, 24H, Fishbone Vital Signs/I&O Vital Signs Date Time Temp Pulse Resp B/P (MAP) Pulse Ox O2 Delivery O2 Flow Rate FiO2 05/29/18 14:00 98.2 60 18 138/63 (88) 80 05/26/18 15:20 Room Air I&O- Last 24 Hours up to 6 AM 05/29/18 05:59 Intake Total 690 ml Output Total 0 ml Balance 690 ml Laboratory Data 24H LABS Laboratory Tests 2 05/29/18 06:12: Nucleated Red Blood Cells % (auto) 0.0, Anion Gap 10, Glomerular Filtration Rate > 60.0, Blood Urea Nitrogen 11, Creatinine 0.90, Sodium Level 145, Potassium Level 3.4L, Chloride Level 114H, Carbon Dioxide Level 21, Calcium Level 8.2L CBC/BMP Laboratory Tests 05/29/18 06:12 Red Blood Count 3.66 L, Mean Corpuscular Volume 85.2, Mean Corpuscular Hemoglobin 26.5 L, Mean Corpuscular Hemoglobin Concent 31.1 L, Red Cell Distribution Width 14.0, Calcium Level 8.2 L RADHA SAMS MD May 29, 2018 16:52
[2018-05-29] MEDS ORDERED: HYDROmorphone HCL 2 MG/ML 1ML VIAL (J1170) As Ordered ONE (17:26)
[2018-05-29] MEDS ORDERED: BUPIVACAINE LIPOSOME/PF 1.3% 20ML VIAL (13.3MG/ML)(EXPAREL)(C9290 PER1MG) As Ordered ONE (18:38)
[2018-05-29] MEDS ORDERED: MORPHINE 4 MG/ML 1ML VIAL/SYRINGE (J2270) IV PRN (19:30)
[2018-05-29] MEDS ORDERED: ONDANSETRON 4MG/2ML VIAL (J2405) IV PRN (19:30)
[2018-05-29] MEDS ORDERED: fentaNYL 100 MCG/2 ML INJECTION (J3010) IV PRN (19:30)
[2018-05-29] MEDS ORDERED: NORCO, ANEXSIA 5/325MG TABLET (HYDROcodone/ACETAMINOPHEN) PO PRN ×2 (19:30)
[2018-05-29] MEDS ORDERED: HYDROMORPHONE HCL 0.5 MG/ 0.5 ML SYRINGE (J1170 PER 1) IV PRN ×2 (19:30)
[2018-05-29] MEDS: LR 1,000 ML IV SCH (21:14)
[2018-05-29] MEDS ORDERED: KETOROLAC 30 MG/ML VIAL (J1885) IV PRN (22:00)
[2018-05-30] VITALS (7 sets, daily range): BP systolic 129–155; BP diastolic 63–83
[2018-05-30 05:54] LABS: HEMATOCRIT 26.6 % (42.0-52.0); HEMOGLOBIN 8.3 g/dl (13.5-17.5); MEAN CORPUSCULAR HEMOGLOBIN 25.9 pg (27.0-33.0); MEAN CORPUSCULAR HGB CONC 31.2 g/dl (32.0-36.5); MEAN CORPUSCULAR VOLUME 83.1 fl (80.0-96.0); PLATELET COUNT, AUTOMATED 223 10^3/uL (150-450); WHITE BLOOD COUNT 11.2 10^3/uL (4.0-10.0)
[2018-05-30] MEDS: LR 1,000 ML IV SCH ×2 (06:00→17:49)
[2018-05-30 06:17] LABS: BLOOD UREA NITROGEN 13 MG/DL (7-18); CALCIUM LEVEL 7.7 MG/DL (8.8-10.2); CARBON DIOXIDE LEVEL 24 MEQ/L (21-32); CHLORIDE LEVEL 112 MEQ/L (98-107); CREATININE FOR GFR 0.88 MG/DL (0.70-1.30); GLOMERULAR FILTRATION RATE > 60.0 (>35); GLUCOSE, FASTING 129 MG/DL (70-100); SODIUM LEVEL 142 MEQ/L (136-145)
[2018-05-30] MEDS ORDERED: PANTOPRAZOLE 40MG INJ (PROTONIX) (C9113) IV SCH (09:00)
--- NOTE | 2018-05-30 15:49 | IPNPDOC ---
Date Seen The patient was seen on 05/30/18. Progress Note SUBJECTIVE: Patient is a 82 yo Male with no known PMH presented with complaints of L. sided rib pain found to have a large abdominal mass and anemia with + fecal occult stool. Interval history: Patient looks comfortable. s/p partial SB resection yesterday. States that he does not have any discomfort at all from the procedure. Denies any complaints. OBJECTIVE PHYSICAL EXAMINATION: VITAL SIGNS: Please see below. General: No acute distress, Alert Eyes: Normal sclera, EOMI, RADHA HENT: Atraumatic, neck supple, moist mucous membranes Cardiovascular: Normal rate, normal rhythm. No murmurs appreciated. Pulmonary: Clear to auscultation b/l, no wheezing GI: Soft, nontender, nondistended. Abdominal surgical sites with overlying dressing c/d/i. Skin: Warm and dry Neuro: CN grossly intact. No focal deficits. Strengths equal b/l. Psych: oriented x 3 LABORATORY DATA, IMAGING STUDIES, MICROBIOLOGY: Please see below. DVT prophylaxis ordered?: YES ASSESSMENT AND PLAN: 1. Abdominal mass - large mass in wall of ileum in setting of strong family history of malignancy. - No previous known colonoscopy, patient normally does not follow doctors. - General surgery and oncology following. - s/p partial SB resection 05/29/18, doing well post op. - Advanced diet per surgery recommendation and post op care. 2. Iron deficiency anemia - s/p 2 pRBC. No significant anemic symptoms reported. - Likely 2/2 GI bleed possibly from mass. FOBT+. - Monitor H/H. - Low iron and Ferritin. - c/w IV Protonix. 3.Broken ribs - Pain improving. - c/w Oxycodone as needed for pain. Dispo: likely home. Code status: DNR/DNI. DISPOSITION: Home when stable. VS, I&O, 24H, Fishbone Vital Signs/I&O Vital Signs Date Time Temp Pulse Resp B/P (MAP) Pulse Ox O2 Delivery O2 Flow Rate FiO2 05/30/18 14:00 97.6 80 14 155/63 (93) 94 3.0 05/26/18 15:20 Room Air I&O- Last 24 Hours up to 6 AM 05/30/18 06:00 Intake Total 2765 ml Output Total 550 ml Balance 2215 ml Laboratory Data 24H LABS Laboratory Tests 2 05/30/18 05:40: Nucleated Red Blood Cells % (auto) 0.0, Anion Gap 6L, Glomerular Filtration Rate > 60.0, Blood Urea Nitrogen 13, Creatinine 0.88, Sodium Level 142, Potassium Level 4.0, Chloride Level 112H, Carbon Dioxide Level 24, Calcium Level 7.7L CBC/BMP Laboratory Tests 05/30/18 05:40 Red Blood Count 3.20 L, Mean Corpuscular Volume 83.1, Mean Corpuscular Hemoglobin 25.9 L, Mean Corpuscular Hemoglobin Concent 31.2 L, Red Cell Distribution Width 14.2, Calcium Level 7.7 L RADHA SAMS MD May 30, 2018 15:49
[2018-05-30] MEDS ORDERED: ENOXAPARIN 40 MG/0.4 ML SYRINGE (J1650) SC SCH (20:00)
[2018-05-30] MEDS: ENOXAPARIN 40 MG/0.4 ML SYRINGE (J1650) SC SCH (20:29)
[2018-05-31 02:00] VITALS: BP 125/71
[2018-05-31 06:00] VITALS: BP 128/68
[2018-05-31 06:21] LABS: HEMATOCRIT 25.3 % (42.0-52.0); HEMOGLOBIN 7.9 g/dl (13.5-17.5); MEAN CORPUSCULAR HEMOGLOBIN 26.2 pg (27.0-33.0); MEAN CORPUSCULAR HGB CONC 31.2 g/dl (32.0-36.5); MEAN CORPUSCULAR VOLUME 84.1 fl (80.0-96.0); PLATELET COUNT, AUTOMATED 199 10^3/uL (150-450); RED BLOOD COUNT 3.01 10^6/uL (4.30-6.10); WHITE BLOOD COUNT 6.2 10^3/uL (4.0-10.0)
[2018-05-31 06:41] LABS: BLOOD UREA NITROGEN 11 MG/DL (7-18); CALCIUM LEVEL 7.9 MG/DL (8.8-10.2); CARBON DIOXIDE LEVEL 25 MEQ/L (21-32); CHLORIDE LEVEL 111 MEQ/L (98-107); CREATININE FOR GFR 0.82 MG/DL (0.70-1.30); GLOMERULAR FILTRATION RATE > 60.0 (>35); GLUCOSE, FASTING 86 MG/DL (70-100); POTASSIUM SERUM 3.3 MEQ/L (3.5-5.1); SODIUM LEVEL 144 MEQ/L (136-145)
[2018-05-31] MEDS: LR 1,000 ML IV SCH (06:43)
[2018-05-31 08:48] VITALS: BP 128/62
[2018-05-31] MEDS ORDERED: POTASSIUM CHLORIDE 10 MEQ SR TABLET PO ONE (09:00)
--- NOTE | 2018-05-31 10:38 | RO ---
DATE OF PROCEDURE: 05/29/2018 PREOPERATIVE DIAGNOSIS: Small bowel mass with gastrointestinal bleeding. POSTOPERATIVE DIAGNOSIS: Malignant appearing mid small bowel mass with history of gastrointestinal (GI) bleeding. PROCEDURE PERFORMED: Laparoscopy with mini laparotomy and segmental small bowel resection with resection of mass, and anastomosis. SURGEON: Dr. Srinivas Gonzalez PROJECT MANAGEMENT PROFESSOR: ANESTHESIA: General. INDICATIONS FOR PROCEDURE: The patient is an 82-year-old man who presented to the hospital with some dyspnea on exertion and was found to have fairly marked anemia. He had not noticed any bleeding. A CT scan of the abdomen and pelvis was obtained which showed a large mass in the small bowel. The patient is now for a laparoscopy and possible laparotomy with resection of the small bowel mass. DESCRIPTION OF PROCEDURE: The patient was brought to the operating room and placed on the operating table in a supine position. He was placed under general endotracheal anesthesia. The patient's abdomen was prepped and draped in a sterile fashion. A Hollis catheter had been placed. Local anesthesia was infiltrated at the trocar sites prior to insertion. A short left upper quadrant skin incision was made and a Veress needle was inserted. After a positive hanging drop test, the abdomen was insufflated with carbon dioxide gas. A 5 mm port was placed over a 5 mm scope and advanced through the abdominal wall without difficulty. Insufflation continued and examination of the abdomen was performed. The right and left lobes of the liver were well seen and appeared normal. The fundus of the gallbladder was noted and also appeared normal. Portions of the stomach and bowel were seen. A second 5 mm trocar was placed lower in the abdomen at about the level of the umbilicus and a third trocar was placed in the left lower quadrant. Graspers were inserted. The patient was tilted to a slight Trendelenburg position. The small bowel was elevated up out of the lower abdomen. A large mass was identified involving a roughly 10-12 cm segment of the small bowel. This appeared to be primarily located on the mesenteric side of the loop, splaying this loop of small bowel across it. There appeared to be significant vascularity along the edges of the tumor. It was quite large and difficult to manipulate using graspers. There was no evidence of any tumor studding on the abdominal wall and no free fluid was seen. The mass was elevated by grasping the small bowel just proximal to this. At this point, I made a small incision along the midline below the umbilicus. I initially started with an approximately 6 cm incision. A Mobius retractor was placed. However, the mass was too large to be delivered through this small incision. It was then extended to approximately 8 cm and subsequently to approximately 10 cm in length to allow an adequate opening for delivery of the mass. The loop of bowel with the mass within was delivered through the incision. The mass itself was approximately 10-11 cm in length by perhaps 7-8 cm in width and 4-5 cm in thickness. Palpation revealed that there did not appear to be any significant anand disease within the root of the mesentery. I proceeded to resect this segment of small bowel. The bowel was transected proximal and distal to the mass using a linear cutter 55 stapler with a blue load. Approximately 5 cm of bowel were resected on each end of the tumor. A wedge of the mesentery was then excised using the Harmonic scalpel for hemostasis. A 3-4 cm margin on all edges was obtained. There was prominent vascular flow at the tip of the mesenteric wedge and this area was clamped and ligated and suture ligated and then divided. The specimen was placed off on the back table. Hemostasis was ensured. A stapled anastomosis was performed with a linear cutter 55 and a [id number] stapler to complete the anastomosis. Several reinforcing and inverting sutures of #3-0 Vicryl were placed along the staple line. After ensuring hemostasis, the anastomosis was irrigated and reduced into the abdomen. The surgical team changed gown and gloves. The Mobius retractor was removed. The midline fascia was closed with interrupted simple sutures of #1 Vicryl. The wound was packed with moistened gauze and the abdomen was reinflated with carbon dioxide to a pressure of 10. Inspection revealed no evidence of bleeding. The abdomen was then deflated and the trocars were all removed. 20 mL of Exparel were mixed with 20 mL of sterile saline, and this was infiltrated widely along the lower midline incision and around the trocar sites. The midline incision was closed with some buried sutures of #3-0 Vicryl and a running subcuticular #4-0 Vicryl. The three trocar sites were approximated with buried Vicryl sutures. Steri-Strips were applied to all incisions followed by light dressings. The patient tolerated the procedure well without apparent complication. He was awakened in the operating room, extubated and moved to the recovery room in stable condition. Several photographs were obtained of the mass for the patient record, and the mass was then sent in formalin for permanent pathology. ADINA
--- NOTE | 2018-05-31 11:48 | IPNPDOC ---
Date Seen The patient was seen on 05/31/18. Progress Note SUBJECTIVE: Patient is a 82 yo Male with no known PMH presented with complaints of L. sided rib pain found to have a large abdominal mass and anemia with + fecal occult stool. Interval history: Patient states that he feels fine and has no discomfort at all. Has been tolerating diet well. OBJECTIVE PHYSICAL EXAMINATION: VITAL SIGNS: Please see below. General: No acute distress, Alert Eyes: Normal sclera, EOMI, RADHA HENT: Atraumatic, neck supple, moist mucous membranes Cardiovascular: Normal rate, normal rhythm. No murmurs appreciated. Pulmonary: Clear to auscultation b/l, no wheezing GI: Soft, nontender, nondistended. Abdominal surgical sites with overlying dressing c/d/i. Skin: Warm and dry Neuro: CN grossly intact. No focal deficits. Strengths equal b/l. Psych: oriented x 3 LABORATORY DATA, IMAGING STUDIES, MICROBIOLOGY: Please see below. DVT prophylaxis ordered?: YES ASSESSMENT AND PLAN: 1. Abdominal mass - large mass in wall of ileum in setting of strong family history of malignancy. - No previous known colonoscopy, patient normally does not follow doctors. - General surgery and oncology following. - s/p partial SB resection 05/29/18, doing well post op. - Advanced diet per surgery recommendation and post op care. 2. Iron deficiency anemia - s/p 2 pRBC. No significant anemic symptoms reported. - Likely 2/2 GI bleed possibly from mass. FOBT+. - Monitor H/H. - Low iron and Ferritin. - c/w IV Protonix. 3.Broken ribs - Pain improving. - c/w Oxycodone as needed for pain. Dispo: likely home. Code status: DNR/DNI. DISPOSITION: Likely d/c tomorrow morning if also clear by surgery. VS, I&O, 24H, Fishbone Vital Signs/I&O Vital Signs Date Time Temp Pulse Resp B/P (MAP) Pulse Ox O2 Delivery O2 Flow Rate FiO2 05/31/18 08:48 98.2 57 128/62 (84) 93 05/31/18 06:00 17 05/30/18 22:00 05/26/18 15:20 Room Air I&O- Last 24 Hours up to 6 AM 05/31/18 06:00 Intake Total 0 ml Output Total 0 ml Balance 0 ml Laboratory Data 24H LABS Laboratory Tests 2 05/31/18 05:47: Nucleated Red Blood Cells % (auto) 0.0, Anion Gap 8, Glomerular Filtration Rate > 60.0, Blood Urea Nitrogen 11, Creatinine 0.82, Sodium Level 144, Potassium Level 3.3L, Chloride Level 111H, Carbon Dioxide Level 25, Calcium Level 7.9L CBC/BMP Laboratory Tests 05/31/18 05:47 Red Blood Count 3.01 L, Mean Corpuscular Volume 84.1, Mean Corpuscular Hemoglobin 26.2 L, Mean Corpuscular Hemoglobin Concent 31.2 L, Red Cell Distribution Width 14.5, Calcium Level 7.9 L RADHA SAMS MD May 31, 2018 11:48
--- NOTE | 2018-05-31 12:05 | IPN ---
DATE OF SERVICE: 05/31/2018 HISTORY: The patient is now postop day #2 from a laparoscopy with mini laparotomy and small bowel resection for a large mid small bowel mass. He has generally done well. He was started on sips of clear liquids the night of surgery and unlimited clear liquids yesterday. He has tolerated these well. He has minimal pain. He has been up to ambulate and is voiding without difficulty. He reports having had a bowel movement yesterday and is still passing some flatus. Vital signs: Show that he has been afebrile over the past 24 hours. His pulse is in the 60s and 70s and his blood pressure is excellent. Room air oxygen saturation is normal. Intake and output: His intake is probably under reported as he has an IV running and there is no IV fluid recorded. There is nothing recorded orally either but he reports taking several things orally over the past 24 hours. PHYSICAL EXAMINATION: The patient is alert and oriented and comfortable. He has a number of visitors with him today. Physical exam shows him to have a regular rate and rhythm on cardiac exam. The lungs are clear. The abdomen is flat and he has some active bowel sounds noted. Laboratory studies show white count of 6, hemoglobin 8, hematocrit 25 and platelet count of 199,000. Chemistry profile shows a sodium of 144, potassium 3.3, chloride 111, CO2 of 25, BUN 11, creatinine 0.8 and a glucose of 86. IMPRESSION: The patient is doing very well postop day #2 from a small bowel resection. PLAN: The patient will be advanced to a regular diet today. I will saline lock his IV and have them remove one of his saline locks. He is encouraged to be up ambulating. He will likely be ready for discharge tomorrow or the next day. ADINA
[2018-05-31 13:09] VITALS: BP 125/66
[2018-05-31] MEDS: ENOXAPARIN 40 MG/0.4 ML SYRINGE (J1650) SC SCH (21:26)
[2018-05-31 22:00] VITALS: BP 128/70
[2018-06-01 06:00] VITALS: BP 128/70
[2018-06-01 06:07] LABS: HEMATOCRIT 28.7 % (42.0-52.0); HEMOGLOBIN 8.9 g/dl (13.5-17.5); MEAN CORPUSCULAR HEMOGLOBIN 26.2 pg (27.0-33.0); MEAN CORPUSCULAR VOLUME 84.4 fl (80.0-96.0); PLATELET COUNT, AUTOMATED 242 10^3/uL (150-450); WHITE BLOOD COUNT 6.6 10^3/uL (4.0-10.0)
[2018-06-01 06:34] LABS: BLOOD UREA NITROGEN 10 MG/DL (7-18); CALCIUM LEVEL 8.2 MG/DL (8.8-10.2); CARBON DIOXIDE LEVEL 25 MEQ/L (21-32); CHLORIDE LEVEL 109 MEQ/L (98-107); CREATININE FOR GFR 0.86 MG/DL (0.70-1.30); GLOMERULAR FILTRATION RATE > 60.0 (>35); GLUCOSE, FASTING 113 MG/DL (70-100); POTASSIUM SERUM 3.2 MEQ/L (3.5-5.1); SODIUM LEVEL 144 MEQ/L (136-145)
[2018-06-01] MEDS ORDERED: POTASSIUM CHLORIDE 10 MEQ SR TABLET PO ONE (08:00)
--- NOTE | 2018-06-01 10:23 | DS.PDOC ---
Discharge Summary General Date of Admission May 26, 2018 at 11:36 Date of Discharge 06/01/18 Attending Physician: RADHA SAMS MD Specialist/Consultants Involve: Srinivas Gonzalez Discharge Summary PROCEDURES PERFORMED DURING STAY: [None]. ADMITTING DIAGNOSES: 1. Abdominal mass 2. Iron deficiency Anemia 3. Broken ribs DISCHARGE DIAGNOSES: 1. Abdominal mass 2. Iron deficiency Anemia 3. Broken ribs COMPLICATIONS/CHIEF COMPLAINT: Gi Bleed,Small Intestine Neoplasm. HISTORY OF PRESENT ILLNESS: "Austin Torres is an 82 YO M with no known past medical history (has not seen a physician in >20 years) who presents with left-sided rib pain after a fall at his home about 6 weeks ago. He states he was not dizzy/lightheaded, but he slipped on some ice going up the stairs leading to his front door. He was not evaluated by any physicians during this time frame and only reports to the ED today at the insistence of his sister. He states that he has gotten progressively short of breath over time, and is unable to walk more than about 2 blocks before having to stop to catch his breath. This has been progressively worsening over the past few months. He has not had any changes to his health recently. He denies any weight loss, night sweats, or unexplained fevers. He al so denies any dysuria or bloody bowel movements. " HOSPITAL COURSE: Patient is a 82-year-old male with no known past medical history prior to arrival as he does not follow with physician regularly pr esented with complaints of left-sided rib pain after recent fall and was found to have a large pelvic mass incidentally. Patient was evaluated by surgery and underwent a partial SB resection and had been doing well. He is able to eat and walk around, denies any pain or discomfort both before and after surgery. Will discharge patient to f/u with PCP and surgery within 1 week, need to discuss findings from the surgery and determine course of treatment from there. DISCHARGE MEDICATIONS: Please see below. ALLERGIES: Please see below. PHYSICAL EXAMINATION ON DISCHARGE: VITAL SIGNS: Please see below. General: No acute distress, Alert Eyes: Normal sclera, EOMI, RADHA HENT: Atraumatic, neck supple, moist mucous membranes Cardiovascular: Normal rate, normal rhythm. No murmurs appreciated. Pulmonary: Clear to auscultation b/l, no wheezing GI: Soft, nontender, nondistended. Abdominal surgical sites with overlying dressing c/d/i. Skin: Warm and dry Neuro: CN grossly intact. No focal deficits. Strengths equal b/l. Psych: oriented x 3 LABORATORY DATA: Please see below. IMAGING: CT Abdomen/pelvis- There is a large pelvic mass which I suspect is in the wall of an ileal loop of small bowel. There is no bowel obstruction or distension. The terminal ileum is unremarkable. There is no adenopathy or ascites. Calcific pleural plaque and calcified granulomas in the lower lobe of the right lung. Lucencies in the lumbar vertebra, nonspecific, osteoporosis versus lytic lesions. L4-5 degenerative disc disease. ACTIVITY: [As tolerated]. DIET: Regular DISCHARGE PLAN: f/u PCP and Surgery within 1 week. Oncology within 2-3 weeks, hopefully biopsy results are completed by then. DISPOSITION: . DISCHARGE INSTRUCTIONS: f/u PCP and Surgery within 1 week. Oncology within 2-3 weeks, hopefully biopsy results are completed by then. ITEMS TO FOLLOWUP ON ON OUTPATIENT: 1. Biopsy results DISCHARGE CONDITION: [Stable]. TIME SPENT ON DISCHARGE: Greater than 30 minutes. Vital Signs/I&Os Vital Signs Date Time Temp Pulse Resp B/P (MAP) Pulse Ox O2 Delivery O2 Flow Rate FiO2 06/01/18 06:00 96.7 69 18 128/70 (89) 96 05/30/18 22:00 05/26/18 15:20 Room Air I&O- Last 24 Hours up to 6 AM 06/01/18 06:00 Intake Total 2390 ml Output Total 0 ml Balance 2390 ml Laboratory Data Labs 24H Laboratory Tests 2 06/01/18 05:45: Nucleated Red Blood Cells % (auto) 0.0, Anion Gap 10, Glomerular Filtration Rate > 60.0, Blood Urea Nitrogen 10, Creatinine 0.86, Sodium Level 144, Potassium Level 3.2L, Chloride Level 109H, Carbon Dioxide Level 25, Calcium Level 8.2L CBC/BMP Laboratory Tests 06/01/18 05:45 Red Blood Count 3.40 L, Mean Corpuscular Volume 84.4, Mean Corpuscular Hemoglobin 26.2 L, Mean Corpuscular Hemoglobin Concent 31.0 L, Red Cell Distribution Width 14.6 H, Calcium Level 8.2 L Discharge Medications Scheduled Aspirin (Aspir 81) 81 Mg Tablet.dr, 81 MG PO DAILY, (Reported) Allergies Coded Allergies: No Known Drug Allergies (Verified Allergy, Unknown, 05/26/18) RADHA SAMS MD Jun 01, 2018 10:22
[2018-06-01] MEDS ORDERED: ACET1TAB55 PO (10:24)
--- NOTE | 2018-06-02 11:03 | IPN ---
DATE: 06/01/2018 HISTORY: The patient is now postop day #3 from a laparoscopy and mini laparotomy with resection of a small segment of the small bowel containing a large tumor. He has been doing very well since surgery. He was advanced to regular food yesterday and has tolerated it well. He is voiding without difficulty. Vital signs show that he has been afebrile with a pulse in the 60s and 70s and a good blood pressure. Intake and output shows that yesterday he had 2000 mL in and voided 5 times in the bathroom. He has reported significant flatus. PHYSICAL EXAMINATION: The patient is sitting up in the chair at the time of this visit. He is alert and oriented. He appears comfortable. Heart exam shows a regular rhythm. The abdomen shows that his dressings are clean and dry. He has active bowel sounds. The abdomen is nondistended and is soft and without any undue tenderness. LABORATORY STUDIES: Today show a white count of 7, hemoglobin of 9, hematocrit of 29 and a platelet count of 242,000. His chemistry profile shows a sodium of 144, potassium 3.2, chloride 109, CO2 of 25, BUN of 10, creatinine 0.86 and a glucose of 113. IMPRESSION: The patient is doing very well 3 days postop from resection of his large small bowel mass as a segmental resection with anastomosis. He is tolerating a regular diet. He has not had a bowel movement in the last day and half and has been having flatus and denies any abdominal pain. PLAN: I spoke with Dr. Leonardo who is the patient's primary physician. I advised that I believe the patient is ready for discharge and he agreed. I counseled the patient that he can take a diet as tolerated. He can shower ad herman. He was advised against any strenuous activity or lifting greater than 25 pounds for the next 4-6 weeks. I have requested that he follow up with me this coming week so that we can review his pathology report when that returns. He was instructed to call my office for any problems such as fevers, chills, increasing abdominal pain or signs of a wound infection. ADINA
== END 2018-06-01 13:00 | disposition home or self-care (01) | DRG 330 ==
LOC: M ED 07:31 → M ED INP 11:36 → M PCU 15:25 → M MS5PR 05-27 18:53
PROVIDERS: ADMIT Student in an Organized Health Care Education/Training Program; ATTEND Student in an Organized Health Care Education/Training Program
PROC: 30233N1 Transfusion of Nonautologous Red Blood Cells into Peripheral Vein, Percutaneous Approach (ICD-10-PCS; 2018-05-26)
PROC: 0DB84ZZ Excision of Small Intestine, Percutaneous Endoscopic Approach (ICD-10-PCS; principal; 2018-05-29 07:30)
DX: K92.2 Gastrointestinal hemorrhage, unspecified (principal); S22.42XA Multiple fractures of ribs, left side, initial encounter for closed fracture; C17.9 Malignant neoplasm of small intestine, unspecified; C83.33 Diffuse large B-cell lymphoma, intra-abdominal lymph nodes; D50.0 Iron deficiency anemia secondary to blood loss (chronic); W00.1XXA Fall from stairs and steps due to ice and snow, initial encounter; Y92.018 Other place in single-family (private) house as the place of occurrence of the external cause; K59.09 Other constipation

== ENCOUNTER → 2018-07-02 | Outpatient (CLI) | payer MEDICARE ==
[~2018-07-02] MED LIST: ACET1TAB55 PO; ASPI81TA85 PO
--- NOTE | 2018-07-02 18:41 | REP ---
REASON: Followup large B-cell lymphoma. There are no prior PET CT for comparison. Prior CT examination of the abdomen and pelvis 05/26/2018 showed a large pelvic mass and multiple vertebral body lucencies. After the intravenous administration of 9.66 millicuries of FDG [address] was performed from the skull base to the mid thigh. The large mass seen in the pelvis on the right has been surgically removed. Standard CT imaging shows no evidence of a residual mass. There are surgical clips in the area. There is no abnormal hypermetabolic activity seen in the neck, chest, abdomen, or pelvis. There is a small focus of hypermetabolic activity seen in the anterior abdominal wall at the level of the pelvis with SUV value of 3.4 and likely secondary to wound healing from surgical procedure. IMPRESSION:Status-post removal of a large pelvic mass. No evidence of residual or metastatic disease. Wound healing as described above. Standard CT imaging of the chest obtained during this examination shows non-hypermetabolic calcific and non-calcific pleural plaquing. This should be followed up. Electronically Signed by Jan Philip DO 07/03/2018 10:08 A
== END ==
LOC: M PLARAD 08:36
PROVIDERS: ATTEND Internal Medicine Hematology & Oncology
DX: C83.33 Diffuse large B-cell lymphoma, intra-abdominal lymph nodes (principal)
CPT/HCPCS: 78815; A9552

== ENCOUNTER 2019-09-21 08:05 | Emergency (ER) | payer MEDICAID, MEDICARE ==
[~2019-09-21 08:05] MED LIST changes: -ASPI81TA85 PO; +ASPI81TA86 PO
--- NOTE | 2019-10-27 11:15 | ECGEPIP ---
[facility] - ED Test Date: 2019-09-21 Pat Name: BRIDGET WHITE Department: Room: - Gender: Male [employer]: : 1935 Requested By: Madhav Schmidt Order Number: [id number] Reading MD: Jim Fowler Measurements Intervals [place] Rate: 50 P: IN: 0 QRS: -5 QRSD: 96 T: 41 QT: 468 QTc: 430 Interpretive Statements SINUS BRADYCARDIA WITH SINUS ARRHYTHMIA WITH OCC. PAC SEE SCANNED DOWNTIME REPORT
[2019-11-05 11:10] LABS: INR 1.01; PARTIAL THROMBOPLASTIN TIME 31.7 SECONDS (24.2-38.5); PROTHROMBIN TIME 13.5 SECONDS (12.5-14.3)
[2019-12-04 03:01] LABS: APPEARANCE, URINE CLEAR (CLEAR); BACTERIA, URINE AUTO NEGATIVE (NEGATIVE); BILIRUBIN, URINE AUTO NEGATIVE (NEGATIVE); BLOOD, URINE BLOOD NEGATIVE (NEGATIVE); COLOR, URINE STRAW (YELLOW); GLUCOSE, URINE (UA) AUTO NEGATIVE (NEGATIVE); KETONE, URINE AUTO NEGATIVE (NEGATIVE); LEUKOCYTE ESTERASE, URINE AUTO NEGATIVE (NEGATIVE); MUCUS, URINE SMALL (NEGATIVE); NITRITE, URINE AUTO NEGATIVE (NEGATIVE); PROTEIN, URINE AUTO NEGATIVE (NEGATIVE); RBC, URINE AUTO 1 /HPF (0-3); SPECIFIC GRAVITY URINE AUTO 1.004 (1.002-1.035); SQUAMOUS EPITHELIAL CELL UR AU 0 /HPF (0-6); UROBILINOGEN, URINE AUTO 0.2 mg/dL (0.0-2.0); WBC, URINE AUTO 0 /HPF (0-3)
[2019-12-04 03:02] LABS: BASO % 0.5 % (0.0-1.0); EOS # 0.1 10^3/uL (0.0-0.5); EOS % 1.6 % (0.0-3.0); HEMATOCRIT 40.5 % (42.0-52.0); HEMOGLOBIN 13.1 g/dl (13.5-17.5); LYMPH # 0.9 10^3/uL (1.5-5.0); LYMPH % 16.9 % (24.0-44.0); MEAN CORPUSCULAR HEMOGLOBIN 29.5 pg (27.0-33.0); MEAN CORPUSCULAR HGB CONC 32.3 g/dl (32.0-36.5); MEAN CORPUSCULAR VOLUME 91.2 fl (80.0-96.0); MONO # 0.5 10^3/uL (0.0-0.8); MONO % 8.4 % (0.0-5.0); NEUTROPHILS % 72.4 % (36.0-66.0); PLATELET COUNT, AUTOMATED 252 10^3/uL (150-450); RED BLOOD COUNT 4.44 10^6/uL (4.30-6.10); WHITE BLOOD COUNT 5.5 10^3/uL (4.0-10.0)
[2019-12-05 21:14] LABS: BLOOD UREA NITROGEN 10 MG/DL (7-18); CALCIUM LEVEL 8.8 MG/DL (8.8-10.2); CARBON DIOXIDE LEVEL 28 MEQ/L (21-32); CHLORIDE LEVEL 110 MEQ/L (98-107); CK-MB VALUE MASS 1.3 NG/ML (<3.6); CPK CREATINE PHOSPHOKINASE 77 U/L (39-308); CREATININE FOR GFR 0.73 MG/DL (0.70-1.30); GLOMERULAR FILTRATION RATE > 60.0 (>35); GLUCOSE, FASTING 90 MG/DL (70-100); MB/CK RELATIVE INDEX 1.69 (< OR =4); SODIUM LEVEL 142 MEQ/L (136-145); TROPONIN I < 0.02 NG/ML (< 0.10)
== END 2019-09-21 08:34 | disposition home or self-care (01) ==
LOC: M ED 08:05
DX: M25.572 Pain in left ankle and joints of left foot (principal); M79.89 Other specified soft tissue disorders; M85.872 Other specified disorders of bone density and structure, left ankle and foot; R60.0 Localized edema; R91.8 Other nonspecific abnormal finding of lung field; R00.1 Bradycardia, unspecified; C85.80 Other specified types of non-Hodgkin lymphoma, unspecified site; D50.9 Iron deficiency anemia, unspecified; Z85.028 Personal history of other malignant neoplasm of stomach